=== PATIENT | female | born 1935 | race African-American/Black ===

== ENCOUNTER → 2018-12-13 | Outpatient (CLI) | payer OTHER ==
[~2018-12-13] MED LIST: ATORVASTATIN CA10 MG PO; FUROSEMIDE 20 M20 MG PO; K-DUR 20 MEQ T20 MEQ PO; LOSARTAN-HCTZ1 EAC2 PO
== END ==
LOC: SEN 13:14
DX: R41.3 Other amnesia (principal); I10 Essential (primary) hypertension; E78.5 Hyperlipidemia, unspecified; Z79.899 Other long term (current) drug therapy

== ENCOUNTER → 2018-12-27 | Outpatient (CLI) | payer OTHER | LOC: SEN 12:47 | DX: I10 Essential (primary) hypertension (principal); R41.3 Other amnesia; E78.2 Mixed hyperlipidemia; Z79.899 Other long term (current) drug therapy ==